=== PATIENT | male | born 1985 | race Hispanic/Latino ===

== ENCOUNTER 2018-10-20 08:24 | Emergency (ER) | payer OTHER ==
[2018-10-20 09:12] LABS: Basophils # (Auto) 0.1 K/mm3 (0.0-0.1); Basophils % (Auto) 0.8 % (0.0-1.8); Eosinophils # (Auto) 0.1 K/mm3 (0.0-0.4); Eosinophils % (Auto) 1.1 % (0.0-4.3); Hematocrit 47.6 % (35.5-45.6); Hemoglobin 15.6 gm/dl (11.8-15.2); Lymphocytes # (Auto) 0.8 K/mm3 (1.2-5.4); Lymphocytes % (Auto) 10.7 % (13.4-35.0); Mean Corpuscular HGB Conc 33 % (32-34); Mean Corpuscular Volume 89 fl (84-94); Monocytes # (Auto) 0.5 K/mm3 (0.0-0.8); Monocytes % (Auto) 7.5 % (0.0-7.3); Platelet Count 260 K/mm3 (140-440); Red Blood Count 5.37 M/mm3 (3.65-5.03); Red Cell Distribution Width 15.3 % (13.2-15.2)
[2018-10-20 09:24] LABS: BUN/Creatinine Ratio 6; Blood Urea Nitrogen 5 mg/dL (9-20); Calcium 9.4 mg/dL (8.4-10.2); Hemolysis Index 10
[2018-10-20] MEDS ORDERED: PEPCID PO ONE (09:53)
[2018-10-20] MEDS ORDERED: ZOFRAN ODT PO ONE (09:53)
[2018-10-20 10:34] LABS: Alanine Aminotransferase 46 units/L (7-56); Albumin 4.3 g/dL (3.9-5)
[2018-10-20 10:38] LABS: Bilirubin,Direct < 0.2 mg/dL (0-0.2)
--- NOTE | 2018-10-20 11:36 | Ultrasound Report ---
ULTRASOUND ABDOMEN LIMITED INDICATION: RUQ pain. COMPARISON: None similar at this institution. FINDINGS: Right upper quadrant ultrasound demonstrates unremarkable liver. No gallstones or pericholecystic fluid. Gallbladder wall thickness is 2 mm. Negative sonographic Barrientos's sign. Common bile duct is 3 mm. Imaged pancreas, nonaneurysmal abdominal aorta and IVC appear within normal limits though pancreatic tail not well seen. Non hydronephrotic 9.7 x 4.8 x 4.8 cm right kidney with cortical thickness of 1.4 cm. A subtle 5 mm right interpolar corticomedullary junction echogenicity as on image 16 with minimal posterior acoustic shadowing nonspecific, though not entirely excluded for a small calculus. CONCLUSION: No acute right upper quadrant sonographic, as described. Please correlate. Thank you for the opportunity to participate in this patient's care.
--- NOTE | 2018-10-20 12:47 | Emergency Department Report ---
ED Abdominal Pain HPI - General Chief Complaint: Abdominal Pain Stated Complaint: STOMACH PAIN/VOMIT BLOOD Time Seen by Provider: 10/20/18 09:45 Source: patient Mode of arrival: Ambulatory Limitations: No Limitations - History of Present Illness Initial Comments: Patient is a 33-year-old male who is presenting with a monthAND A half of decreased appetite. Patient states he has nausea after he eats. Patient feels bloated often. Patient states he has intermittent vomiting. Patient states he vomited today and Zostrix blood. Patient does admit to heavy alcohol use. Location: epigastric Radiation: none Severity scale (0 -10): 6 Quality: cramping, burning Consistency: intermittent Improves With: nothing Worsens With: eating Associated Symptoms: nausea, vomiting, anorexia. denies: diarrhea, fever, constipation, dysuria, hematemesis, hematochezia, melena, hematuria - Related Data Previous Rx's Medication Instructions Recorded Last Taken Type Ondansetron [Zofran Odt] 4 mg PO Q8HR #10 tab.rapdis 10/20/18 Unknown Rx traMADol [Ultram] 50 mg PO Q6HR PRN #12 tablet 10/20/18 Unknown Rx Allergies Allergy/AdvReac Type Severity Reaction Status Date / Time Penicillins Allergy Unknown Verified 10/20/18 08:26 ED Review of Systems ROS: Stated complaint: STOMACH PAIN/VOMIT BLOOD Other details as noted in HPI Comment: All other systems reviewed and negative ED Past Medical Hx - Past Medical History Previous Medical History?: No - Surgical History Past Surgical History?: No - Social History Smoking Status: Current Every Day Smoker Substance Use Type: Alcohol - Medications Home Medications: Home Medications Medication Instructions Recorded Confirmed Last Taken Type Ondansetron [Zofran Odt] 4 mg PO Q8HR #10 tab.rapdis 10/20/18 Unknown Rx traMADol [Ultram] 50 mg PO Q6HR PRN #12 tablet 10/20/18 Unknown Rx ED Physical Exam - General Limitations: No Limitations General appearance: alert, in no apparent distress - Head Head exam: Present: atraumatic, normocephalic - Eye Eye exam: Present: normal appearance - ENT ENT exam: Present: mucous membranes moist - Neck Neck exam: Present: normal inspection - Respiratory Respiratory exam: Present: normal lung sounds bilaterally. Absent: respiratory distress, wheezes, rales, rhonchi - Cardiovascular Cardiovascular Exam: Present: regular rate, normal rhythm, normal heart sounds. Absent: systolic murmur, diastolic murmur, rubs, gallop - GI/Abdominal GI/Abdominal exam: Present: soft, normal bowel sounds. Absent: distended, tenderness, guarding, rebound, rigid - Rectal Rectal exam: Present: deferred - Extremities Exam Extremities exam: Present: normal inspection - Back Exam Back exam: Present: normal inspection - Neurological Exam Neurological exam: Present: alert, oriented X3 - Psychiatric Psychiatric exam: Present: normal affect, normal mood - Skin Skin exam: Present: warm, dry, intact, normal color. Absent: rash ED Course Vital Signs 10/20/18 08:42 Temperature 98.3 F Pulse Rate 92 H Respiratory 20 Rate Blood Pressure 163/107 ED Medical Decision Making - Lab Data Result diagrams: 10/20/18 08:57 10/20/18 08:57 Lab Results 10/20/18 10/20/18 10/20/18 Range/Units 08:57 08:57 08:57 WBC 7.1 (4.5-11.0) K/mm3 RBC 5.37 H (3.65-5.03) M/mm3 Hgb 15.6 H (11.8-15.2) gm/dl Hct 47.6 H (35.5-45.6) % MCV 89 (84-94) fl MCH 29 (28-32) pg MCHC 33 (32-34) % RDW 15.3 H (13.2-15.2) % Plt Count 260 (140-440) K/mm3 Lymph % (Auto) 10.7 L (13.4-35.0) % Ramsey % (Auto) 7.5 H (0.0-7.3) % Eos % (Auto) 1.1 (0.0-4.3) % Baso % (Auto) 0.8 (0.0-1.8) % Lymph # 0.8 L (1.2-5.4) K/mm3 Ramsey # 0.5 (0.0-0.8) K/mm3 Eos # 0.1 (0.0-0.4) K/mm3 Baso # 0.1 (0.0-0.1) K/mm3 Seg Neutrophils % 79.9 H (40.0-70.0) % Seg Neutrophils # 5.7 (1.8-7.7) K/mm3 Sodium 137 (137-145) mmol/L Potassium 3.8 (3.6-5.0) mmol/L Chloride 101.0 (98-107) mmol/L Carbon Dioxide 25 (22-30) mmol/L Anion Gap 15 mmol/L BUN 5 L (9-20) mg/dL Creatinine 0.8 (0.8-1.5) mg/dL Estimated GFR > 60 ml/min BUN/Creatinine Ratio 6 % Glucose 107 H (75-100) mg/dL Calcium 9.4 (8.4-10.2) mg/dL Total Bilirubin 0.30 (0.1-1.2) mg/dL Direct Bilirubin < 0.2 (0-0.2) mg/dL Indirect Bilirubin 0.1 mg/dL AST 38 (5-40) units/L ALT 46 (7-56) units/L Alkaline Phosphatase 79 (35-129) units/L Total Protein 7.4 (6.3-8.2) g/dL Albumin 4.3 (3.9-5) g/dL Albumin/Globulin Ratio 1.4 % Lipase 82 H (13-60) units/L - Radiology Data [facility] [address] [place] [address] Ultrasound Report Signed Patient: SELINA JACKSON MR#: [id number] : 1985 Acct:[id number] Age/Sex: 33 / M ADM Date: 10/20/18 Loc: ED Attending Dr: Ordering Physician: LEENA CARRASCO MD Date of Service: 10/20/18 Procedure(s): US abdomen limited Accession Number(s): [id number] cc: LEENA CARRASCO MD ULTRASOUND ABDOMEN LIMITED INDICATION: RUQ pain. COMPARISON: None similar at this institution. FINDINGS: Right upper quadrant ultrasound demonstrates unremarkable liver. No gallstones or pericholecystic fluid. Gallbladder wall thickness is 2 mm. Negative sonographic Barrientos's sign. Common bile duct is 3 mm. Imaged pancreas, nonaneurysmal abdominal aorta and IVC appear within normal limits though pancreatic tail not well seen. Non hydronephrotic 9.7 x 4.8 x 4.8 cm right kidney with cortical thickness of 1.4 cm. A subtle 5 mm right interpolar corticomedullary junction echogenicity as on image 16 with minimal posterior acoustic shadowing nonspecific, though not entirely excluded for a small calculus. CONCLUSION: No acute right upper quadrant sonographic, as described. Please correlate. Thank you for the opportunity to participate in this patient's care. Transcribed By: RS Dictated By: ANGELIQUE MANDEL MD Electronically Authenticated By: ANGELIQUE MANDEL MD Signed Date/Time: 10/20/18 1135 DD/ 1128 TD/TT: 10/20/18 1135 - Medical Decision Making Patient's been counseled about his heavy alcohol use and the fact that this is likely causing his mild pancreatitis. Patient did go on a clear liquid diet for the next several days. Patient given his symptomatic relief patient also be given a GI doctor for follow-up. Patient blood pressure was elevated at the time of arrival. Patient is hypertensive episode likely secondary to pain and panic otitis. Critical care attestation.: If time is entered above; I have spent that time in minutes in the direct care of this critically ill patient, excluding procedure time. ED Disposition Clinical Impression: Acute pancreatitis, Alcohol abuse Disposition: DC-01 TO HOME OR SELFCARE Is pt being admited?: No Does the pt Need Aspirin: No Condition: Stable Instructions: Pancreatitis (ED) Referrals: [facility] [Provider Group] - 3-5 Days Time of Disposition: 12:47
[2018-10-20 12:56] VITALS: BP 149/82
== END 2018-10-20 12:54 | disposition home or self-care (01) ==
LOC: ED 08:24
DX: K85.90 Acute pancreatitis without necrosis or infection, unspecified (principal); F10.10 Alcohol abuse, uncomplicated; F17.200 Nicotine dependence, unspecified, uncomplicated; Z88.0 Allergy status to penicillin
CPT/HCPCS: 36415; 76705; 80048; 80076; 83690; 85025; Q0162